=== PATIENT | male | born 1975 | race Caucasian/White ===

== ENCOUNTER 2017-09-23 13:00 | Emergency (ER) | payer OTHER ==
[~2017-09-23 13:00] MED LIST: GABA-531 PO; LIRA0.6P SQ; LISI-662 PO; LORA10TA7 PO; METF1000 PO; PIOG30TA10 PO; PREG75 PO
== END 2017-09-23 13:58 | disposition left against medical advice (07) ==
LOC: EMS 13:01
DX: R51 Headache (principal); Z53.21 Procedure and treatment not carried out due to patient leaving prior to being seen by health care provider

== ENCOUNTER 2018-05-27 17:17 | Emergency (ER) | payer OTHER | END 2018-05-27 19:03 | disposition left against medical advice (07) | LOC: EMS 17:18 | DX: R19.7 Diarrhea, unspecified (principal); Z53.21 Procedure and treatment not carried out due to patient leaving prior to being seen by health care provider ==

== ENCOUNTER 2024-05-28 20:28 | Emergency (ER) | payer SELFPAY ==
[~2024-05-28] VITALS: Ht 160 cm; Wt 106.8 kg
[~2024-05-28 20:28] MED LIST changes: +GABA-1181 PO; -GABA-531 PO; -LISI-662 PO; +LISI-894 PO
[2024-05-28 20:48] VITALS: TEMP 98.2
[2024-05-28 21:23] LABS: BASOPHILS % (AUTO) 0.2 % (0.0-2.0); EOSINOPHILS % (AUTO) 2.4 % (1.0-6.0); HEMATOCRIT 39.2 % (41-53); HEMOGLOBIN 13.5 g/dL (13.5-17.5); LYMPHOCYTES # (AUTO) 1.7 K/uL (1.0-4.8); MEAN CORPUSCULAR HGB CONC 34.5 G/dL (31.0-37.0); MEAN CORPUSCULAR VOLUME 90 fL (80-100); MONOCYTES # (AUTO) 0.5 K/uL (0.1-1.0); MONOCYTES % (AUTO) 5.2 % (2.0-9.0); NEUTROPHILS # (AUTO) 7.3 K/uL (1.8-7.7); NEUTROPHILS % (AUTO) 75.2 % (40.0-70.0); PLATELET COUNT (AUTO) 205 K/uL (150-450); RED BLOOD CELL COUNT(AUTO) 4.36 MIL/uL (4.50-5.90); RED CELL DISTRIBUTION WIDTH 13.3 % (11.5-14.5); WHITE BLOOD COUNT (AUTO) 9.7 K/uL (4.5-11.0)
[2024-05-28 21:30] LABS: ANION GAP 4 mmol/L (8-16); CALCIUM, TOTAL 8.8 mg/dL (8.8-10.5); CARBON DIOXIDE 32 mmol/L (22-29); CHLORIDE 102 mmol/L (98-107); GLOMERULAR FILTR. RATE CALC > 60 mL/min (>60); GLUCOSE,RANDOM 136 mg/dL (70-110); POTASSIUM 3.9 mmol/L (3.5-5.1); SODIUM SERUM 138 mmol/L (136-145); UREA NITROGEN, BLOOD 12 mg/dL (7-18)
[2024-05-29 00:15] VITALS: BP 158/99; PULSE 94; RESP 20; O2SAT 98
[2024-05-29] MEDS: TraMADol HCL 50 MG TABLET PO ONE (00:20)
[2024-05-29] MEDS: LIDOCAINE 5% TRANSDERMAL PATCH TD ONE (00:20)
[2024-05-29 00:40] LABS: APPEARANCE,URINE CLEAR (CLEAR); BILIRUBIN,URINE NEGATIVE (NEGATIVE); COLOR,URINE LIGHT YELLOW (YELLOW); GLUCOSE, URINE (UA) NEGATIVE (NEGATIVE); KETONES,URINE 80-100 mg/dL (NEGATIVE); LEUKOCYTE ESTERASE ,URINE NEGATIVE (NEGATIVE); NITRATE,URINE NEGATIVE (NEGATIVE); OCCULT BLOOD,URINE NEGATIVE (NEGATIVE); PH,URINE 6.5 (5.0-8.0); PROTEIN,URINE TRACE mg/dL (NEGATIVE); UROBILINOGEN,URINE <=1.0 mg/dL (<=1.0)
[2024-05-29 00:42] LABS: BACTERIA,URINE None Seen /HPF (None Seen); RBC,URINE None Seen /HPF (0-2); SQUAMOUS EPITHELIAL CELL,UR Few /LPF (None Seen); WBC,URINE None Seen /HPF (0-5)
[2024-05-29] MEDS: KETOROLAC TROMETHAMINE 30 MG/ML VIAL IM ONE (01:34)
[2024-05-29] MEDS ORDERED: CYCL-448 PO (02:58)
[2024-05-29] MEDS ORDERED: POLY17PO62 PO (02:59)
== END 2024-05-29 03:04 | disposition home or self-care (01) ==
LOC: EMS 20:28
DX: M54.50 Low back pain, unspecified (principal); E11.9 Type 2 diabetes mellitus without complications; I10 Essential (primary) hypertension; Z79.84 Long term (current) use of oral hypoglycemic drugs; Z79.85 Long-term (current) use of injectable non-insulin antidiabetic drugs; Z79.899 Other long term (current) drug therapy
CPT/HCPCS: 99285; 80048; 81001; 85025; 36415; 82962; 74176; 74022; 96372; J1885